=== PATIENT | male | born 1970 | race Caucasian/White ===

== ENCOUNTER 2020-05-07 11:04 | Emergency (ER) | payer MEDICAID ==
[~2020-05-07] VITALS: Ht 175.3 cm; Wt 83.9 kg
[2020-05-07] MEDS ORDERED: SULF1TAB48 PO (11:15)
[2020-05-07] MEDS ORDERED: CEPH-570 PO (11:15)
--- NOTE | 2020-05-07 11:19 | NUR ---
Dr. Patino at bedside assessing patient.
[2020-05-07] MEDS ORDERED: HYDROCODONE/APAP 5-325MG TABLET ONE (11:30)
[2020-05-07] MEDS ORDERED: HYDROCODONE/APAP 5-325MG TABLET PO ONE (11:30)
[2020-05-07 11:58] LABS: BASOPHILS # (AUTO) 0.1 K/uL (0.0-8.0); EOSINOPHILS # (AUTO) 0.4 K/uL (0.0-0.7); EOSINOPHILS % (AUTO) 2.4 % (0.0-7.0); HEMATOCRIT 45.5 % (36.7-47.1); HEMOGLOBIN 15.2 g/dL (12.5-16.3); LYMPHOCYTES # (AUTO) 1.8 K/uL (20.0-40.0); LYMPHOCYTES % (AUTO) 11.6 % (20.5-51.5); MEAN CORPUSCULAR HEMOGLOBIN 29.2 uug (23.8-33.4); MEAN CORPUSCULAR HGB CONC 34 g/dL (32.5-36.3); MEAN CORPUSCULAR VOLUME 87.2 fL (73.0-96.2); MONOCYTES # (AUTO) 1.3 K/uL (2.0-10.0); MONOCYTES % (AUTO) 8.4 % (0.0-11.0); NEUTROPHILS # (AUTO) 11.7 K/uL (1.8-8.9); NEUTROPHILS % (AUTO) 76.6 % (38.5-71.5); PLATELET COUNT (AUTO) 289 K/uL (152-348); RED BLOOD CELL COUNT(AUTO) 5.22 MIL/uL (4.06-5.63); WHITE BLOOD COUNT (AUTO) 15.2 K/uL (3.6-10.2)
[2020-05-07 12:13] LABS: CREATININE 1.1 mg/dL (0.6-1.3); POTASSIUM 3.2 mmol/L (3.5-5.1)
--- NOTE | 2020-05-07 12:22 | NUR ---
Critical lab of Lactic acid of 2.1 reported by Jany.
--- NOTE | 2020-05-07 12:25 | NUR ---
Critical lab reported to Dr. Remy.
[2020-05-07] MEDS ORDERED: IV NORMAL SALINE 1000 ML BAG IV ONE ×2 (12:30→13:30)
[2020-05-07] MEDS ORDERED: PIPERACILLIN SODIUM/TAZOBACTAM 3.375 G in IV DEXTROSE 5% 50 ML IV ONE (12:30)
[2020-05-07] MEDS ORDERED: PIPERACILLIN/TAZOBACTAM/D5W 50 ML IV ONE (12:30)
--- NOTE | 2020-05-07 12:57 | NUR ---
Spoke to Sarah from [place], arranging to transfer patient to [facility].
--- NOTE | 2020-05-07 13:15 | NUR ---
Specimen collected for COVID-19 antigen and sent to lab.
[2020-05-07] MEDS ORDERED: POTASSIUM CHLORIDE 20 MEQ TAB.PRT.SR PO ONE ×2 (13:30→19:00)
--- NOTE | 2020-05-07 13:30 | NUR ---
Pt resting with NAD noted, pending transfer.
[2020-05-07] MEDS ORDERED: POTASSIUM CHLORIDE 20 MEQ TAB.PRT.SR ONE (13:38)
[2020-05-07 14:10] LABS: BILIRUBIN,DIRECT 0.1 mg/dL (0.0-0.2); BILIRUBIN,TOTAL 0.5 mg/dL (0.2-1.0)
--- NOTE | 2020-05-07 15:03 | NUR ---
Jany from lab called and notified COVID test is negative.
--- NOTE | 2020-05-07 17:00 | NUR ---
Spoke to Sarah from [place] faxed over COVID and CT scan.
--- NOTE | 2020-05-07 19:43 | NUR ---
RECEIVED PT RESTING QUITELY. WAITING FOR [facility] TO GIVE US THE BED.
--- NOTE | 2020-05-07 20:50 | NUR ---
JESENIA CALLED THAT [id number].
[2020-05-07] MEDS ORDERED: HYDROMORPHONE 1 MG/1 ML DISP.SYRIN IV ONE (21:00)
[2020-05-07] MEDS ORDERED: LORAZEPAM 2 MG/1 ML VIAL IV ONE (21:00)
[2020-05-07] MEDS ORDERED: HYDROMORPHONE 1 MG/1 ML DISP.SYRIN ONE (21:00)
[2020-05-07] MEDS ORDERED: LORAZEPAM 2 MG/1 ML VIAL ONE (21:05)
--- NOTE | 2020-05-07 21:14 | NUR ---
PT. C/O PAIN ON HIS LEFT EYE DILAUDID 0.5 MG GIVEN IVP.
--- NOTE | 2020-05-07 21:15 | NUR ---
PT REQUESTED MED FOR ANXIETY, DILAUDID 0.5 GIVEN IVP VIA ON RFA HEP LOCK.
--- NOTE | 2020-05-07 21:21 | NUR ---
REPORT GIVEN TO YVETTE SOTO RN .
--- NOTE | 2020-05-07 22:20 | NUR ---
DISCHARGED & TRANSFERED TO [facility]IA [facility].
== END 2020-05-07 22:20 | disposition short-term general hospital (02) ==
LOC: ER 11:04
DX: L03.213 Periorbital cellulitis (principal); E87.6 Hypokalemia; Z20.828 Contact with and (suspected) exposure to other viral communicable diseases
CPT/HCPCS: 36415; 80048; 82247; 82248; 83605 ×2; 85025; 85730; 87040 ×2; 87426; 96365; 96375; 99285; J1170; J2060; J2543; J7030

== ENCOUNTER 2020-05-19 00:10 | Emergency (ER) | payer MEDICAID ==
[~2020-05-19] VITALS: Ht 175.3 cm; Wt 81.6 kg
[~2020-05-19 00:10] MED LIST: CEPH-570 PO; SULF1TAB48 PO
--- NOTE | 2020-05-19 00:22 | NUR ---
Patient discharged to home in stable condition. Written and verbal after care instructions given. Patient verbalizes understanding of instructions. Stressed follow up or return to ER for worsening s/s. Ambulated from ER with stable gait. All belongings with patient.
[2020-05-19 00:24] VITALS: BP 131/70
== END 2020-05-19 00:25 | disposition home or self-care (01) ==
LOC: ER 00:15
DX: Z48.817 Encounter for surgical aftercare following surgery on the skin and subcutaneous tissue (principal); L02.01 Cutaneous abscess of face; R03.0 Elevated blood-pressure reading, without diagnosis of hypertension
CPT/HCPCS: A4663

== ENCOUNTER 2020-06-18 05:36 | Emergency (ER) | payer MEDICAID ==
[~2020-06-18] VITALS: Ht 175.3 cm; Wt 81.6 kg
[2020-06-18] MEDS ORDERED: VANCOMYCIN IV 200 ML ONE (05:59)
[2020-06-18] MEDS ORDERED: CEFTRIAXONE 1 G VIAL ONE (05:59)
[2020-06-18] MEDS ORDERED: VANCOMYCIN IV 1,000 MG in IV DEXTROSE 5% 250 ML IV ONE (06:00)
[2020-06-18] MEDS ORDERED: CEFTRIAXONE 1 G in IV DEXTROSE 5% 50 ML IV ONE (06:00)
== END 2020-06-18 07:27 | disposition home or self-care (01) ==
LOC: ER 05:39
DX: L03.211 Cellulitis of face (principal); L71.9 Rosacea, unspecified; R03.0 Elevated blood-pressure reading, without diagnosis of hypertension
CPT/HCPCS: 96365; 96375; 99284; J0696; J3370; A4663

== ENCOUNTER 2020-07-12 18:38 | Emergency (ER) | payer MEDICAID ==
[~2020-07-12] VITALS: Ht 175.3 cm; Wt 81.6 kg
--- NOTE | 2020-07-12 19:34 | NUR ---
Patient discharged to home in stable condition. Written and verbal after care instructions given. Patient verbalizes understanding of instructions. Stressed follow up or return to ER for worsening s/s.
== END 2020-07-12 19:36 | disposition home or self-care (01) ==
LOC: ER 18:38
DX: Z76.0 Encounter for issue of repeat prescription (principal); R03.0 Elevated blood-pressure reading, without diagnosis of hypertension; L03.211 Cellulitis of face
CPT/HCPCS: A4663

== ENCOUNTER 2020-08-05 08:30 | Emergency (ER) | payer MEDICAID ==
[~2020-08-05] VITALS: Ht 175.3 cm; Wt 81.6 kg
--- NOTE | 2020-08-05 09:11 | NUR ---
Patient discharged to home in stable condition with brisk steady gait. Written and verbal after care instructions given to patient. Patient verbalizes understanding and compliance of instructions. Stressed follow up with his primary doctor / referral-Dr Stallings or return to ER for worsening s/s.
[2020-08-06] MEDS ORDERED: CLIN300C3 PO (04:12)
[2020-08-10] MEDS ORDERED: CLIN300C12 PO (15:10)
== END 2020-08-05 09:11 | disposition home or self-care (01) ==
LOC: ER 08:30
DX: L03.211 Cellulitis of face (principal); L71.9 Rosacea, unspecified
CPT/HCPCS: A4663

== ENCOUNTER 2020-08-06 03:53 | Inpatient (IN) | payer MEDICAID ==
[~2020-08-06] VITALS: Ht 205.7 cm; Wt 81.6 kg
[2020-08-06] MEDS ORDERED: CLIN300C3 PO (04:12)
[2020-08-06] MEDS ORDERED: PIPERACILLIN SODIUM/TAZOBACTAM 3.375 G in IV DEXTROSE 5% 50 ML IV ONE (04:45)
[2020-08-06] MEDS ORDERED: VANCOMYCIN 1G/D5W 200 ML PIGGYBACK IV ONE (04:45)
--- NOTE | 2020-08-06 05:23 | NUR ---
SPOKE TO KARIN FROM [facility] GAVE HER CLINICALS AND SHE IS TO CALL ME BACK IN 1 HR.
--- NOTE | 2020-08-06 05:27 | NUR ---
LABS DRAWN/SENT/COVID SWAB SENT.
[2020-08-06 05:33] LABS: BASOPHILS # (AUTO) 0.1 K/uL (0.0-8.0); BASOPHILS % (AUTO) 0.6 % (0.0-2.0); EOSINOPHILS # (AUTO) 0.1 K/uL (0.0-0.7); EOSINOPHILS % (AUTO) 0.8 % (0.0-7.0); HEMATOCRIT 41.3 % (36.7-47.1); HEMOGLOBIN 14.2 g/dL (12.5-16.3); LYMPHOCYTES # (AUTO) 2.2 K/uL (20.0-40.0); LYMPHOCYTES % (AUTO) 12.2 % (20.5-51.5); MEAN CORPUSCULAR HEMOGLOBIN 29.7 uug (23.8-33.4); MEAN CORPUSCULAR HGB CONC 34 g/dL (32.5-36.3); MEAN CORPUSCULAR VOLUME 86.5 fL (73.0-96.2); MONOCYTES % (AUTO) 11.5 % (0.0-11.0); NEUTROPHILS # (AUTO) 13.3 K/uL (1.8-8.9); NEUTROPHILS % (AUTO) 74.9 % (38.5-71.5); PLATELET COUNT (AUTO) 304 K/uL (152-348); RED BLOOD CELL COUNT(AUTO) 4.77 MIL/uL (4.06-5.63); WHITE BLOOD COUNT (AUTO) 17.8 K/uL (3.6-10.2)
[2020-08-06] MEDS ORDERED: PIPERACILLIN/TAZOBACTAM/D5W 50 ML IV ONE ×3 (05:35→20:00)
--- NOTE | 2020-08-06 05:35 | NUR ---
PHARMACY NOTE; ZOSYN 3.375 GM IVP STARTED AT 0530 TO RT FOREARM
[2020-08-06] MEDS ORDERED: VANCOMYCIN IV 200 ML ONE (05:44)
[2020-08-06 05:47] LABS: CREATININE 1.3 mg/dL (0.6-1.3); POTASSIUM 3.6 mmol/L (3.5-5.1)
[2020-08-06] MEDS ORDERED: IOHEXOL 300MG/ML 100 ML INFUS..BTL ONE (06:35)
[2020-08-06] MEDS ORDERED: IV NORMAL SALINE 250 ML IV ONE (06:35)
[2020-08-06] MEDS ORDERED: SWABABLE VALVE TRANSFER SET EA MC ONE (06:35)
--- NOTE | 2020-08-06 07:50 | NUR ---
Patient is resting in room 3, in n distress. awakens easy Addendum: 08/06/20 at 0835 by RUBY corection from prior note: "IN NO DISTRESS"
[2020-08-06] MEDS ORDERED: MAGNESIUM HYDROXIDE 30 ML LIQUID UDC PO PRN (11:30)
[2020-08-06] MEDS ORDERED: Z GUARD REMEDY PASTE 57 GM TUBE TOP PRN (11:30)
[2020-08-06] MEDS ORDERED: ONDANSETRON 4 MG/2 ML VIAL IV PRN (11:30)
[2020-08-06] MEDS ORDERED: ACETAMINOPHEN 325 MG TABLET PO PRN (11:30)
[2020-08-06] MEDS ORDERED: IV NS 1000 ML 1,000 ML IV PRN (11:30)
[2020-08-06] MEDS ORDERED: IBUPROFEN 600 MG TABLET PO ONE (11:45)
[2020-08-06] MEDS: PIPERACILLIN SODIUM/TAZOBACTAM 3.375 G in IV DEXTROSE 5% 50 ML IV SCH ×3 (11:46→20:01)
[2020-08-06] MEDS ORDERED: IBUPROFEN 600 MG TABLET ONE (11:53)
--- NOTE | 2020-08-06 12:05 | NUR ---
PATIENT IS SITTING UP EATING LUNCH. . STATES FACE HAS PAIN. REQUESTS ADVIL. DR BALLARD NOTIFIED. ADVIL GIVEN ORDERED. PATIENT TO BE ADMITTED TO HOSPITAL. NO MED/SURG BED/STAFF AVAILABLE. PATIENT TO REMAIN IN ER
--- NOTE | 2020-08-06 14:50 | NUR ---
PATIENT IS RESTING IN HIS ROOM WITH NO NEW COMPLAINTS
--- NOTE | 2020-08-06 16:52 | NUR ---
STILL WAITING FOR BED TO BE AVAILIABLE ON M/S FLOOR. PATIENT IS AWAKE AND ALERT IN NO DISTRESS. HE HAS EATEN LUNCH AND DRANK FLUIDS.
--- NOTE | 2020-08-06 18:49 | NUR ---
PATIENT AMBULATED TO BR IN STEADY GAIT. AWAITING BED AVAILABILITY
--- NOTE | 2020-08-06 19:15 | NUR ---
HAND OFF REPORT GIVEN TO PACO IPPER
[2020-08-06] MEDS ORDERED: VANCOMYCIN IV 1,250 MG in IV DEXTROSE 5% 250 ML IV ONE (20:00)
[2020-08-06] MEDS ORDERED: VANCOMYCIN 1000 MG VIAL ONE (20:09)
[2020-08-06] MEDS ORDERED: VANCOMYCIN HCL 500 MG VIAL ONE (20:09)
[2020-08-07] MEDS ORDERED: PIPERACILLIN/TAZOBACTAM/D5W 50 ML IV ONE ×4 (00:06→17:41)
[2020-08-07] MEDS: PIPERACILLIN SODIUM/TAZOBACTAM 3.375 G in IV DEXTROSE 5% 50 ML IV SCH ×4 (00:10→17:38)
[2020-08-07] MEDS ORDERED: HYDROCODONE/APAP 5-325MG TABLET ONE ×2 (02:49→20:13)
[2020-08-07] MEDS: HYDROCODONE/APAP 5-325MG TABLET PO PRN ×2 (02:49→20:09)
--- NOTE | 2020-08-07 03:55 | NUR ---
Patient is resting comfortably in bed with eyes closed
--- NOTE | 2020-08-07 07:02 | NUR ---
PHARMACY NOTE: ZOSYN 3.375 GM IVPB COMPLETED AT 0700 TO RT FOREARM.
--- NOTE | 2020-08-07 07:10 | NUR ---
Patient ate breakfast with good appetite, NAD, calm , pending available inpatient medical surgical bed & [email or web address] time.
[2020-08-07 07:26] LABS: BASOPHILS # (AUTO) 0.1 K/uL (0.0-8.0); BASOPHILS % (AUTO) 0.9 % (0.0-2.0); EOSINOPHILS # (AUTO) 0.4 K/uL (0.0-0.7); EOSINOPHILS % (AUTO) 2.5 % (0.0-7.0); HEMATOCRIT 43.9 % (36.7-47.1); HEMOGLOBIN 15.4 g/dL (12.5-16.3); LYMPHOCYTES # (AUTO) 1.8 K/uL (20.0-40.0); LYMPHOCYTES % (AUTO) 12.5 % (20.5-51.5); MEAN CORPUSCULAR HEMOGLOBIN 30.3 uug (23.8-33.4); MEAN CORPUSCULAR HGB CONC 35 g/dL (32.5-36.3); MEAN CORPUSCULAR VOLUME 86.6 fL (73.0-96.2); MONOCYTES # (AUTO) 1.4 K/uL (2.0-10.0); MONOCYTES % (AUTO) 9.6 % (0.0-11.0); NEUTROPHILS # (AUTO) 10.9 K/uL (1.8-8.9); NEUTROPHILS % (AUTO) 74.5 % (38.5-71.5); PLATELET COUNT (AUTO) 307 K/uL (152-348); RED BLOOD CELL COUNT(AUTO) 5.07 MIL/uL (4.06-5.63); WHITE BLOOD COUNT (AUTO) 14.6 K/uL (3.6-10.2)
[2020-08-07 07:44] LABS: CREATININE 1.1 mg/dL (0.6-1.3); MAGNESIUM 2.2 mg/dL (1.8-2.4); PHOSPHOROUS 3.6 mg/dL (2.5-4.9); POTASSIUM 3.6 mmol/L (3.5-5.1)
[2020-08-07] MEDS: PANTOPRAZOLE SODIUM 40 MG TABLET.DR PO SCH (07:45)
[2020-08-07] MEDS ORDERED: PANTOPRAZOLE SODIUM 40 MG TABLET.DR PO ONE (07:50)
[2020-08-07 08:46] LABS: THYROID STIMULATING HORMONE 0.337 mIU/mL (0.358-3.740)
[2020-08-07] MEDS: VANCOMYCIN IV 1,000 MG in IV DEXTROSE 5% 250 ML IV SCH ×2 (09:12→20:08)
[2020-08-07] MEDS ORDERED: VANCOMYCIN IV 200 ML ONE ×2 (09:16→20:11)
--- NOTE | 2020-08-07 11:56 | NUR ---
Patient was removed from ER bed 3 to ER bed 5A. No acute change seen. Patient is resting comfortably on gurney with eyes closed. Calm & cooperative when awake, respiration:easy.
--- NOTE | 2020-08-07 18:01 | NUR ---
Patient is still waiting for an inpatient med-surg bed & available nurse. Patient is sleeping, denies pains when awake. Dinner [email or web address].
--- NOTE | 2020-08-07 19:13 | NUR ---
Hands off report given to DHEERAJ Silveira.
--- NOTE | 2020-08-07 22:46 | NUR ---
Patient transfered upstairs to Room 315 -- DHEERAJ Isidro given report. Trasferred via [facility]. Pertinent information given. Stable condition.
[2020-08-07 23:08] VITALS: BP 134/87
[2020-08-08] MEDS ORDERED: PIPERACILLIN/TAZOBACTAM/D5W 100 ML IV ONE (02:51)
[2020-08-08 04:20] VITALS: BP 122/76
--- NOTE | 2020-08-08 05:00 | NUR ---
Received [place] from [place] via [place] around 2255 with 0.9 NS infusing well on his right arm, alert and oriented, able to make needs known, cooperative with care. Admission assessment done, VS within normal limits. Patient has redness and swelling on his right cheek, diagnosed with cellulitis. Patient on IV antibiotics, no reactions noted during medication administration. Patient stable the whole shift.
[2020-08-08] MEDS: PIPERACILLIN SODIUM/TAZOBACTAM 3.375 G in IV DEXTROSE 5% 50 ML IV SCH ×4 (06:49→13:28)
[2020-08-08] MEDS: PANTOPRAZOLE SODIUM 40 MG TABLET.DR PO SCH (07:02)
--- NOTE | 2020-08-08 08:00 | NUR ---
Received PT in bed, asleep with safety measure on. No acute distress or SOB noted. Vitals WNL. No complain of pain stated by PT. Will continue to monitor.
[2020-08-08 08:25] LABS: CREATININE 1.3 mg/dL (0.6-1.3); PHOSPHOROUS 3.5 mg/dL (2.5-4.9); POTASSIUM 3.4 mmol/L (3.5-5.1)
[2020-08-08 09:27] LABS: BASOPHILS # (AUTO) 0.1 K/uL (0.0-8.0); BASOPHILS % (AUTO) 0.9 % (0.0-2.0); EOSINOPHILS # (AUTO) 0.6 K/uL (0.0-0.7); EOSINOPHILS % (AUTO) 4.7 % (0.0-7.0); HEMATOCRIT 44.1 % (36.7-47.1); HEMOGLOBIN 15.1 g/dL (12.5-16.3); LYMPHOCYTES # (AUTO) 1.8 K/uL (20.0-40.0); LYMPHOCYTES % (AUTO) 14.9 % (20.5-51.5); MEAN CORPUSCULAR HEMOGLOBIN 29.6 uug (23.8-33.4); MEAN CORPUSCULAR HGB CONC 34 g/dL (32.5-36.3); MEAN CORPUSCULAR VOLUME 86.8 fL (73.0-96.2); MONOCYTES # (AUTO) 1.4 K/uL (2.0-10.0); MONOCYTES % (AUTO) 11.3 % (0.0-11.0); NEUTROPHILS # (AUTO) 8.2 K/uL (1.8-8.9); NEUTROPHILS % (AUTO) 68.2 % (38.5-71.5); PLATELET COUNT (AUTO) 338 K/uL (152-348); RED BLOOD CELL COUNT(AUTO) 5.08 MIL/uL (4.06-5.63); WHITE BLOOD COUNT (AUTO) 12.1 K/uL (3.6-10.2)
[2020-08-08 11:06] VITALS: BP 126/86
[2020-08-08] MEDS: VANCOMYCIN IV 1,000 MG in IV DEXTROSE 5% 250 ML IV SCH (12:20)
[2020-08-08 15:38] VITALS: BP 138/88
--- NOTE | 2020-08-08 17:30 | NUR ---
PT decided to leave on AMA. Refused to sign papers. IV removed. No swelling or bleeding noted. PT walked out of unit.
[2020-08-08] MEDS ORDERED: CEFEPIME HCL 1 G in IV DEXTROSE 5% 50 ML IV SCH (22:00)
[2020-08-10] MEDS ORDERED: CLIN300C12 PO (15:10)
== END 2020-08-08 17:30 | disposition left against medical advice (07) | DRG 383 ==
LOC: ER 04:01 → TRANSITION 18:35 → MEDSURG3 08-07 21:59
PROVIDERS: ADMIT Registered Nurse; ATTEND Registered Nurse
DX: L03.211 Cellulitis of face (principal); D72.829 Elevated white blood cell count, unspecified; F10.10 Alcohol abuse, uncomplicated; F12.90 Cannabis use, unspecified, uncomplicated; F15.10 Other stimulant abuse, uncomplicated; F17.210 Nicotine dependence, cigarettes, uncomplicated; E05.90 Thyrotoxicosis, unspecified without thyrotoxic crisis or storm; K05.6 Periodontal disease, unspecified
CPT/HCPCS: 36415; 70488; 83735; 84100; 84443; 85025; 85651; 87040; 87070; 87077; G0378; J2543; J3370; J7030; J7050; J7060; Q9967

== ENCOUNTER 2020-08-09 02:06 | Inpatient (IN) | payer MEDICAID ==
[~2020-08-09] VITALS: Ht 175.3 cm; Wt 81.6 kg
[~2020-08-09 02:06] MED LIST changes: -CEPH-570 PO; +CLIN300C3 PO; -SULF1TAB48 PO
[2020-08-09] MEDS ORDERED: CEFEPIME HCL 2 G in IV DEXTROSE 5% 100 ML IV ONE (03:15)
[2020-08-09] MEDS ORDERED: VANCOMYCIN IV 1,500 MG in IV DEXTROSE 5% 500 ML IV STA (03:15)
[2020-08-09 03:42] LABS: CREATININE 1.5 mg/dL (0.6-1.3); POTASSIUM 3.3 mmol/L (3.5-5.1)
[2020-08-09 03:53] LABS: BILIRUBIN,TOTAL 0.4 mg/dL (0.2-1.0); TOTAL PROTEIN, SERUM 7.5 g/dL (6.4-8.2)
[2020-08-09 03:56] LABS: BASOPHILS # (AUTO) 0.1 K/uL (0.0-8.0); BASOPHILS % (AUTO) 0.7 % (0.0-2.0); EOSINOPHILS # (AUTO) 0.1 K/uL (0.0-0.7); EOSINOPHILS % (AUTO) 1.1 % (0.0-7.0); HEMATOCRIT 41.8 % (36.7-47.1); HEMOGLOBIN 14.5 g/dL (12.5-16.3); LYMPHOCYTES # (AUTO) 1.7 K/uL (20.0-40.0); LYMPHOCYTES % (AUTO) 14.2 % (20.5-51.5); MEAN CORPUSCULAR HEMOGLOBIN 29.7 uug (23.8-33.4); MEAN CORPUSCULAR HGB CONC 35 g/dL (32.5-36.3); MEAN CORPUSCULAR VOLUME 85.7 fL (73.0-96.2); MONOCYTES # (AUTO) 1.2 K/uL (2.0-10.0); MONOCYTES % (AUTO) 10.1 % (0.0-11.0); NEUTROPHILS # (AUTO) 8.8 K/uL (1.8-8.9); NEUTROPHILS % (AUTO) 73.9 % (38.5-71.5); PLATELET COUNT (AUTO) 337 K/uL (152-348); RED BLOOD CELL COUNT(AUTO) 4.88 MIL/uL (4.06-5.63); WHITE BLOOD COUNT (AUTO) 11.9 K/uL (3.6-10.2)
[2020-08-09] MEDS ORDERED: VANCOMYCIN 1000 MG VIAL ONE (04:35)
[2020-08-09] MEDS ORDERED: CEFEPIME HCL 1 G VIAL ONE (04:35)
[2020-08-09] MEDS ORDERED: VANCOMYCIN HCL 500 MG VIAL ONE (04:36)
--- NOTE | 2020-08-09 05:03 | NUR ---
ALL LABS AND BLOOD CX SENT TO LABB REBA ROOT SWAB SENT APPROX 5 MIN AGO, PT RECEIVING VANCO IVPB AT THIS TIME. PT RESTING EYES CLOSED.
--- NOTE | 2020-08-09 05:39 | NUR ---
spoke to osmel from [facility] whom stated that the pt was authorized to be admitted anf=d to fax her all the summury report and facesheet, which I did.
--- NOTE | 2020-08-09 06:09 | NUR ---
Note rocio in ED - 08/09/20 at 0611 by LUIGI pharmacy note: vanco 1.5gm infusion completed at 608 to rt forearm iv, no adverse reactions noted.
--- NOTE | 2020-08-09 06:09 | NUR ---
pharmacy note; maxepine 2gm ivp ended at 0609 to left forearm
--- NOTE | 2020-08-09 06:54 | NUR ---
PT SLEEPING, NO DISTRESS NOTED,SBAR REPORT TO AM SHIFT, VANCO INFUSING.
[2020-08-09] MEDS ORDERED: IV NS 1000 ML 1,000 ML IV PRN (07:45)
[2020-08-09] MEDS ORDERED: MAGNESIUM HYDROXIDE 30 ML LIQUID UDC PO PRN (07:45)
[2020-08-09] MEDS ORDERED: ONDANSETRON 4 MG/2 ML VIAL IV PRN (07:45)
[2020-08-09] MEDS ORDERED: ACETAMINOPHEN 325 MG TABLET PO PRN (07:45)
[2020-08-09] MEDS ORDERED: Z GUARD REMEDY PASTE 57 GM TUBE TOP PRN (07:45)
[2020-08-09] MEDS ORDERED: HYDROCODONE/APAP 5-325MG TABLET PO PRN (07:45)
--- NOTE | 2020-08-09 08:28 | NUR ---
JAMIE SALDAÑA PROVIDED FOR PT.
[2020-08-09] MEDS ORDERED: HEPARIN SODIUM,PORCINE 5,000 UNITS/ML VIAL ONE (11:29)
[2020-08-09] MEDS: HEPARIN SODIUM,PORCINE 5,000 UNITS/ML VIAL SQ SCH ×2 (11:29→21:00)
--- NOTE | 2020-08-09 12:46 | NUR ---
TRNASFERED PT TO FLOOR IN STABLE CONDITION. PT REMAINED CALM/COMFORTABLE THE WHOLE ER STAY.
[2020-08-09 12:51] VITALS: BP 132/78
--- NOTE | 2020-08-09 14:00 | NUR ---
Received this 50y/o male from ER with diagnosis of right face cellulitis. Patient is alert, oriented x 4, not in any form of distress on room air. He denies any pain or discomfort. Assisted with his needs. Call light and frequently used items placed within patient's reach. IV peripheral line G20 on the left forearm in place and patent. Will continue to monitor.
[2020-08-09] MEDS: CEFEPIME HCL 1 G in IV DEXTROSE 5% 50 ML IV SCH ×2 (15:43→22:07)
[2020-08-09 17:39] VITALS: BP 148/91
[2020-08-09] MEDS: VANCOMYCIN IV 750 MG in IV DEXTROSE 5% 250 ML IV SCH (17:39)
[2020-08-09] MEDS ORDERED: VANCOMYCIN IV 1,000 MG in IV DEXTROSE 5% 250 ML IV SCH (18:00)
[2020-08-09 20:35] VITALS: BP 136/84
[2020-08-10] MEDS: CEFEPIME HCL 1 G in IV DEXTROSE 5% 50 ML IV SCH (05:48)
[2020-08-10] MEDS: VANCOMYCIN IV 750 MG in IV DEXTROSE 5% 250 ML IV SCH (05:54)
[2020-08-10 07:51] LABS: BASOPHILS # (AUTO) 0.1 K/uL (0.0-8.0); BASOPHILS % (AUTO) 1.4 % (0.0-2.0); EOSINOPHILS # (AUTO) 0.5 K/uL (0.0-0.7); EOSINOPHILS % (AUTO) 7.3 % (0.0-7.0); HEMATOCRIT 40.2 % (36.7-47.1); HEMOGLOBIN 14.1 g/dL (12.5-16.3); LYMPHOCYTES # (AUTO) 1.6 K/uL (20.0-40.0); LYMPHOCYTES % (AUTO) 25.9 % (20.5-51.5); MEAN CORPUSCULAR HEMOGLOBIN 29.9 uug (23.8-33.4); MEAN CORPUSCULAR HGB CONC 35 g/dL (32.5-36.3); MEAN CORPUSCULAR VOLUME 85.5 fL (73.0-96.2); MONOCYTES # (AUTO) 0.8 K/uL (2.0-10.0); NEUTROPHILS # (AUTO) 3.4 K/uL (1.8-8.9); NEUTROPHILS % (AUTO) 53.4 % (38.5-71.5); PLATELET COUNT (AUTO) 315 K/uL (152-348); WHITE BLOOD COUNT (AUTO) 6.4 K/uL (3.6-10.2)
[2020-08-10 07:54] LABS: BILIRUBIN,TOTAL 0.6 mg/dL (0.2-1.0); CREATININE 1.4 mg/dL (0.6-1.3); PHOSPHOROUS 3.8 mg/dL (2.5-4.9); POTASSIUM 3.5 mmol/L (3.5-5.1)
[2020-08-10] MEDS: HEPARIN SODIUM,PORCINE 5,000 UNITS/ML VIAL SQ SCH (10:46)
[2020-08-10 12:06] VITALS: BP 141/86
[2020-08-10 14:58] LABS: THYROID STIMULATING HORMONE 0.813 mIU/mL (0.358-3.740)
[2020-08-10] MEDS ORDERED: CLIN300C12 PO (15:10)
[2020-08-10] MEDS ORDERED: AMPI500C11 PO (15:26)
--- NOTE | 2020-08-10 15:45 | NUR ---
With discharge order to home . Saline lock removed. Prescription and DC instruction given to patient, verbalized understanding. Went home per ambulatory, in fair condition, not in distress, afebrile.
== END 2020-08-10 15:45 | disposition home or self-care (01) | DRG 383 ==
LOC: ER 02:08 → TRANSITION 06:30 → MEDSURG3 12:27
PROVIDERS: ADMIT Internal Medicine; ATTEND Internal Medicine
DX: L03.211 Cellulitis of face (principal); L02.01 Cutaneous abscess of face; E87.6 Hypokalemia; N17.0 Acute kidney failure with tubular necrosis; N13.9 Obstructive and reflux uropathy, unspecified; B95.2 Enterococcus as the cause of diseases classified elsewhere; K05.6 Periodontal disease, unspecified; Z20.828 Contact with and (suspected) exposure to other viral communicable diseases; Z87.891 Personal history of nicotine dependence; L71.9 Rosacea, unspecified; F19.10 Other psychoactive substance abuse, uncomplicated
CPT/HCPCS: 36415; 83735; 84100; 84443; 85025; 87040; A4663; G0378; J0692; J1644; J3370; J7060

== ENCOUNTER 2020-09-22 10:31 | Emergency (ER) | payer MEDICAID ==
[~2020-09-22] VITALS: Ht 175.3 cm; Wt 77.1 kg
[2020-09-22] MEDS ORDERED: SULFAMETH/TRIMETH 800/160 MG TABLET PO ONE (10:45)
[2020-09-22] MEDS ORDERED: CEphaleXIN 500 MG CAPSULE PO ONE (10:45)
[2020-09-22] MEDS ORDERED: diphenhydrAMINE 25 MG CAP PO ONE ×2 (10:45→10:51)
[2020-09-22] MEDS ORDERED: NAPROXEN 500 MG TABLET PO ONE (10:45)
[2020-09-22] MEDS ORDERED: CEPH500C2 PO (10:46)
[2020-09-22] MEDS ORDERED: NAPR-1009 PO (10:46)
[2020-09-22] MEDS ORDERED: SULF1TAB48 PO (10:46)
[2020-09-22] MEDS ORDERED: DIPH25CA83 PO (10:46)
[2020-09-22] MEDS ORDERED: CEphaleXIN 500 MG CAPSULE ONE (10:51)
[2020-09-22] MEDS ORDERED: SULFAMETH/TRIMETH 800/160 MG TABLET ONE (10:51)
[2020-09-22] MEDS ORDERED: NAPROXEN 500 MG TABLET ONE (10:51)
[2020-09-22 10:58] VITALS: BP 157/89
== END 2020-09-22 10:59 | disposition home or self-care (01) ==
LOC: ER 10:32
DX: L03.213 Periorbital cellulitis (principal); L71.9 Rosacea, unspecified
CPT/HCPCS: 99284; Q0163; A4663

== ENCOUNTER 2020-10-16 19:47 | Emergency (ER) | payer MEDICAID ==
[~2020-10-16] VITALS: Ht 175.3 cm; Wt 81.6 kg
[~2020-10-16 19:47] MED LIST changes: +CEPH500C2 PO; -CLIN300C3 PO; +DIPH25CA83 PO; +NAPR-1009 PO; +SULF1TAB48 PO
--- NOTE | 2020-10-16 19:57 | NUR ---
Dr. Coffman at bedside for MSE.
[2020-10-16] MEDS ORDERED: LIDOCAINE 1%-EPI 1:100,000 20 ML VIAL IJ ONE (20:00)
[2020-10-16] MEDS ORDERED: SULF1TAB48 PO (20:09)
[2020-10-16] MEDS ORDERED: CEPH500C2 PO (20:09)
--- NOTE | 2020-10-16 20:21 | NUR ---
Patient discharged to home in stable condition. Written and verbal after care instructions given. Patient verbalizes understanding of instructions. Stressed follow up or return to ER for worsening s/s. Patient out of ER with steady gait, no acute signs of distress, VSS, all belongings taken.
[2020-10-16 20:22] VITALS: BP 152/90
== END 2020-10-16 20:23 | disposition home or self-care (01) ==
LOC: ER 19:48
DX: L02.01 Cutaneous abscess of face (principal); L03.211 Cellulitis of face
CPT/HCPCS: 10060; 99283; J3490; A4663

== ENCOUNTER 2020-11-03 12:49 | Emergency (ER) | payer MEDICAID ==
[~2020-11-03] VITALS: Ht 175.3 cm; Wt 79.4 kg
--- NOTE | 2020-11-03 13:10 | NUR ---
Dr Mane at the bedside for MSE.
[2020-11-03 13:33] LABS: CREATININE 1.4 mg/dL (0.6-1.3); POTASSIUM 3.7 mmol/L (3.5-5.1)
[2020-11-03 13:35] LABS: BASOPHILS # (AUTO) 0.1 K/uL (0.0-8.0); BASOPHILS % (AUTO) 0.8 % (0.0-2.0); EOSINOPHILS # (AUTO) 0.2 K/uL (0.0-0.7); EOSINOPHILS % (AUTO) 1.3 % (0.0-7.0); HEMATOCRIT 42.6 % (36.7-47.1); HEMOGLOBIN 14.5 g/dL (12.5-16.3); LYMPHOCYTES # (AUTO) 2.2 K/uL (20.0-40.0); LYMPHOCYTES % (AUTO) 14.2 % (20.5-51.5); MEAN CORPUSCULAR HEMOGLOBIN 29.2 uug (23.8-33.4); MEAN CORPUSCULAR HGB CONC 34 g/dL (32.5-36.3); MEAN CORPUSCULAR VOLUME 86.1 fL (73.0-96.2); MONOCYTES # (AUTO) 1.4 K/uL (2.0-10.0); MONOCYTES % (AUTO) 9.3 % (0.0-11.0); NEUTROPHILS # (AUTO) 11.3 K/uL (1.8-8.9); NEUTROPHILS % (AUTO) 74.4 % (38.5-71.5); PLATELET COUNT (AUTO) 426 K/uL (152-348); RED BLOOD CELL COUNT(AUTO) 4.95 MIL/uL (4.06-5.63); WHITE BLOOD COUNT (AUTO) 15.2 K/uL (3.6-10.2)
[2020-11-03] MEDS ORDERED: CLINDAMYCIN HCL 150 MG CAPSULE PO ONE (14:15)
[2020-11-03] MEDS ORDERED: CLINDAMYCIN HCL 150 MG CAPSULE ONE (14:26)
--- NOTE | 2020-11-03 14:30 | NUR ---
Patient does not wish to proceed with medical care recommended by Dr. Rucker). Patient given information related to possible complications, up to and including , which could occur as a result of leaving the hospital at this time. Patient verbalizes understanding of risks involved due to leaving against medical advice. Patient has signed AMA form.
== END 2020-11-03 14:30 | disposition left against medical advice (07) ==
LOC: ER 12:49
DX: L03.211 Cellulitis of face (principal); D72.829 Elevated white blood cell count, unspecified; R79.82 Elevated C-reactive protein (CRP)
CPT/HCPCS: 36415; 85025; 85651; 86140; A4663

== ENCOUNTER 2020-11-03 16:41 | Emergency (ER) | payer MEDICAID ==
[~2020-11-03] VITALS: Ht 175.3 cm; Wt 79.4 kg
[2020-11-03] MEDS: OXYCODONE/APAP 5-325 MG TABLET PO ONE (22:17)
[2020-11-03] MEDS ORDERED: OXYCODONE/APAP 5-325 MG TABLET ONE (22:21)
[2020-11-03] MEDS ORDERED: LORAZEPAM 1 MG TABLET ONE (23:36)
[2020-11-03] MEDS: LORAZEPAM 0.5 MG TABLET PO ONE (23:40)
== END 2020-11-04 00:07 | disposition short-term general hospital (02) ==
LOC: ER 16:42
DX: L03.211 Cellulitis of face (principal); F15.10 Other stimulant abuse, uncomplicated; Z20.822 Contact with and (suspected) exposure to COVID-19
CPT/HCPCS: A4663

== ENCOUNTER 2021-04-02 06:14 | Emergency (ER) | payer MEDICAID ==
[~2021-04-02] VITALS: Ht 172.7 cm; Wt 81.6 kg
--- NOTE | 2021-04-02 06:41 | NUR ---
PT AMBULATED TO ER WITH STEADY GAIT, C/O SWOLLEN/PAINFUL PENIS THAT STARTED 3 DAYS AGO. A/O X3, AFEBRILE, NO SOB OR LABORED BREATHING.
--- NOTE | 2021-04-02 06:42 | NUR ---
DR. MARQUEZ AT BEDSIDE, MSE IN PROGRESS. CHAPERONED BY DHEERAJ GRISSOM.
[2021-04-02] MEDS ORDERED: CEFTRIAXONE 500 MG VIAL IM ONE (07:00)
[2021-04-02] MEDS ORDERED: AZITHROMYCIN 250 MG TABLET PO ONE (07:00)
[2021-04-02] MEDS ORDERED: CEFTRIAXONE 1 G VIAL ONE (07:03)
[2021-04-02] MEDS ORDERED: AZITHROMYCIN 250 MG TABLET ONE (07:03)
[2021-04-02] MEDS ORDERED: SULF1TAB48 PO (07:03)
--- NOTE | 2021-04-02 07:33 | NUR ---
Gave pt RX and d/c instructions, pt verbalized understanding.
== END 2021-04-02 07:44 | disposition home or self-care (01) ==
LOC: ER 06:16
DX: N48.22 Cellulitis of corpus cavernosum and penis (principal); L71.9 Rosacea, unspecified
CPT/HCPCS: 96372; 99283; J0696; J3490; A4663; Q0144

== ENCOUNTER 2021-04-19 19:27 | Emergency (ER) | payer MEDICAID ==
[~2021-04-19] VITALS: Ht 172.7 cm; Wt 81.6 kg
[~2021-04-19 19:27] MED LIST changes: -CEPH500C2 PO; -DIPH25CA83 PO; -NAPR-1009 PO
[2021-04-19] MEDS ORDERED: CLIN300C12 PO (20:02)
[2021-04-19] MEDS ORDERED: MUPI22OI2 TP (20:02)
[2021-04-19] MEDS ORDERED: NYST15CR TP (20:02)
[2021-04-19 20:50] VITALS: BP 118/90
== END 2021-04-19 20:16 | disposition home or self-care (01) ==
LOC: ER 19:28
DX: N48.1 Balanitis (principal); N47.2 Paraphimosis; F15.20 Other stimulant dependence, uncomplicated; F12.20 Cannabis dependence, uncomplicated; F17.290 Nicotine dependence, other tobacco product, uncomplicated
CPT/HCPCS: A4663

== ENCOUNTER 2021-06-29 00:09 | Emergency (ER) | payer MEDICAID ==
[~2021-06-29] VITALS: Ht 175.3 cm; Wt 79.4 kg
[~2021-06-29 00:09] MED LIST changes: +CLIN300C12 PO; +MUPI22OI2 TP; +NYST15CR TP
[2021-06-29] MEDS ORDERED: DIPH25TA25 PO (00:35)
[2021-06-29] MEDS ORDERED: CLIN300C12 PO (00:35)
[2021-06-29] MEDS ORDERED: HYDR-3980 PO (00:35)
[2021-06-29] MEDS ORDERED: PRED20TA PO (00:35)
[2021-06-29] MEDS ORDERED: TDAP DIPH,PERTUSS,TET VAC/PF 0.5 ML DISP.SYRIN IM ONE ×2 (00:45→01:07)
[2021-06-29] MEDS ORDERED: HYDROMORPHONE 1 MG/1 ML DISP.SYRIN IV ONE (00:45)
[2021-06-29] MEDS ORDERED: methylPREDNISolone SOD SUCC 125 MG/2 ML VIAL IV ONE (00:45)
[2021-06-29] MEDS ORDERED: diphenhydrAMINE 50 MG/1 ML VIAL IV ONE (00:45)
[2021-06-29] MEDS ORDERED: ONDANSETRON 4 MG/2 ML VIAL IV ONE (00:45)
[2021-06-29] MEDS ORDERED: CLINDAMYCIN PHOSPHATE IV 900 MG in IV DEXTROSE 5% 100 ML IV ONE (00:45)
[2021-06-29] MEDS ORDERED: methylPREDNISolone SOD SUCC 125 MG/2 ML VIAL ONE (01:04)
[2021-06-29] MEDS ORDERED: diphenhydrAMINE 50 MG/1 ML VIAL ONE (01:04)
[2021-06-29] MEDS ORDERED: HYDROMORPHONE 1 MG/1 ML DISP.SYRIN ONE (01:04)
[2021-06-29] MEDS ORDERED: ONDANSETRON 4 MG/2 ML VIAL ONE (01:04)
[2021-06-29] MEDS ORDERED: CLINDAMYCIN 900MG/D5W 100ML IVPB **ER PYXIS ONLY IJ ONE (01:07)
--- NOTE | 2021-06-29 01:15 | NUR ---
Verbal consent given for tdap booster
--- NOTE | 2021-06-29 02:40 | NUR ---
IV removed. Catheter intact and site benign. Pressure and 4x4 gauze applied to site. No bleeding noted.
--- NOTE | 2021-06-29 02:45 | NUR ---
Pt discharged from ER, pt refused to sign discharged paperwork, did not want to wake up or leave the ER, security was called and pt was escorted out of the ER.
[2021-06-29 03:00] VITALS: BP 138/79
== END 2021-06-29 03:01 | disposition home or self-care (01) ==
LOC: ER 00:15
DX: S61.432A Puncture wound without foreign body of left hand, initial encounter (principal); W31.89XA Contact with other specified machinery, initial encounter; Y92.89 Other specified places as the place of occurrence of the external cause; F17.210 Nicotine dependence, cigarettes, uncomplicated; F15.10 Other stimulant abuse, uncomplicated; L71.9 Rosacea, unspecified; R21 Rash and other nonspecific skin eruption
CPT/HCPCS: 73130; 90471; 90715; 96374; 96375; 99284; 99406; J1170; J1200; J2405; J2930; J3490; A4663

== ENCOUNTER 2021-07-03 18:45 | Emergency (ER) | payer MEDICAID ==
[~2021-07-03] VITALS: Ht 175.3 cm; Wt 79.4 kg
[~2021-07-03 18:45] MED LIST changes: +DIPH25TA25 PO; +HYDR-3980 PO; +PRED20TA PO
--- NOTE | 2021-07-03 19:15 | NUR ---
Dr. Scott at bedside for MSE.
[2021-07-03] MEDS ORDERED: CLIN300C12 PO (19:18)
[2021-07-03 19:25] VITALS: BP 155/100
== END 2021-07-03 19:25 | disposition home or self-care (01) ==
LOC: ER 18:52
DX: L02.01 Cutaneous abscess of face (principal); I16.0 Hypertensive urgency; F12.20 Cannabis dependence, uncomplicated; F15.20 Other stimulant dependence, uncomplicated; F17.290 Nicotine dependence, other tobacco product, uncomplicated
CPT/HCPCS: A4663

== ENCOUNTER 2021-07-06 09:15 | Emergency (ER) | payer MEDICAID ==
[~2021-07-06] VITALS: Ht 175.3 cm; Wt 79.4 kg
[2021-07-06] MEDS: LIDOCAINE HCL 1% 20 ML VIAL IJ ONE (11:00)
[2021-07-06] MEDS ORDERED: diphenhydrAMINE 50 MG/1 ML VIAL ONE (12:23)
[2021-07-06] MEDS ORDERED: HYDROMORPHONE 1 MG/1 ML DISP.SYRIN ONE (12:23)
[2021-07-06] MEDS: diphenhydrAMINE 50 MG/1 ML VIAL IM ONE (12:27)
[2021-07-06] MEDS: HYDROMORPHONE 1 MG/1 ML DISP.SYRIN IM ONE (12:28)
[2021-07-06] MEDS ORDERED: NEOMY/BACITRA/POLYMYXIN B OINT UD PACKET TP ONE (13:00)
== END 2021-07-06 13:43 | disposition home or self-care (01) ==
LOC: ER 09:15
DX: L02.01 Cutaneous abscess of face (principal); L71.9 Rosacea, unspecified; F15.10 Other stimulant abuse, uncomplicated; F12.20 Cannabis dependence, uncomplicated; R03.0 Elevated blood-pressure reading, without diagnosis of hypertension
CPT/HCPCS: 10060; 96372 ×2; 99284; J1170; J1200; J3490; A4663

== ENCOUNTER 2021-07-07 19:40 | Emergency (ER) | payer MEDICAID ==
[~2021-07-07] VITALS: Ht 175.3 cm; Wt 79.4 kg
--- NOTE | 2021-07-07 20:30 | NUR ---
Patient sitting in waiting room with no distress noted.
--- NOTE | 2021-07-07 21:45 | NUR ---
Bed is available in the ER at this time. Called patient to be placed in room but was not present in the waiting room or outside of ER.
--- NOTE | 2021-07-07 22:00 | NUR ---
Patient left without being seen by ERMD
[2021-07-08] MEDS ORDERED: CEPH500C2 PO (05:35)
[2021-07-08] MEDS ORDERED: SULF1TAB48 PO (05:35)
== END 2021-07-07 23:00 | disposition left against medical advice (07) ==
LOC: ER 19:41
DX: Z53.21 Procedure and treatment not carried out due to patient leaving prior to being seen by health care provider (principal)

== ENCOUNTER 2021-07-08 02:11 | Emergency (ER) | payer MEDICAID ==
[~2021-07-08] VITALS: Ht 175.3 cm; Wt 79.4 kg
--- NOTE | 2021-07-08 02:20 | NUR ---
Patientarrived at the ER with c/o of left hand swelling and pain that started 5 days ago.
--- NOTE | 2021-07-08 02:46 | NUR ---
Dr. Ayon on bedside for MSE.
[2021-07-08] MEDS ORDERED: KETOROLAC TROMETHAMINE 30 MG INJ IVP ONE (03:15)
[2021-07-08] MEDS ORDERED: IV NS 1000 ML 1,000 ML IV ONE (03:15)
[2021-07-08] MEDS ORDERED: CLINDAMYCIN PHOSPHATE IV 900 MG in IV DEXTROSE 5% 100 ML IV ONE (03:15)
[2021-07-08 03:27] LABS: HEMATOCRIT 43.4 % (36.7-47.1); MEAN CORPUSCULAR HEMOGLOBIN 28.8 uug (23.8-33.4); MEAN CORPUSCULAR VOLUME 84.7 fL (73.0-96.2); PLATELET COUNT (AUTO) 300 K/uL (152-348)
[2021-07-08] MEDS ORDERED: KETOROLAC TROMETHAMINE 30 MG INJ ONE (03:28)
[2021-07-08] MEDS ORDERED: CLINDAMYCIN PHOSPHATE 900 MG/6 ML VIAL ONE (03:28)
[2021-07-08 03:30] LABS: CREATININE 1.1 mg/dL (0.6-1.3); POTASSIUM 3.5 mmol/L (3.5-5.1)
[2021-07-08] MEDS ORDERED: LIDOCAINE 1%-EPI 1:100,000 20 ML VIAL IJ ONE (03:30)
[2021-07-08 03:36] LABS: BILIRUBIN,TOTAL 0.4 mg/dL (0.2-1.0); TOTAL PROTEIN, SERUM 7.5 g/dL (6.4-8.2)
--- NOTE | 2021-07-08 05:06 | NUR ---
Telephone call to KAYLEE to follow up on hand xray result.
--- NOTE | 2021-07-08 05:19 | NUR ---
Dr. Ayon on bedside.
[2021-07-08] MEDS ORDERED: SULF1TAB48 PO (05:35)
[2021-07-08] MEDS ORDERED: CEPH500C2 PO (05:35)
--- NOTE | 2021-07-08 05:43 | NUR ---
Patient discharged to home in stable condition. Written and verbal after care instructions given. Patient verbalizes understanding of instructions. Stressed follow up or return to ER for worsening s/s. Patient ambulated fr the ER with steady gait. All belongings with patient.
[2021-07-08 05:44] VITALS: BP 140/95
== END 2021-07-08 05:40 | disposition home or self-care (01) ==
LOC: ER 02:15
DX: L03.114 Cellulitis of left upper limb (principal); S61.432D Puncture wound without foreign body of left hand, subsequent encounter; W31.89XD Contact with other specified machinery, subsequent encounter; Z91.14 Patient's other noncompliance with medication regimen; L02.01 Cutaneous abscess of face; D72.829 Elevated white blood cell count, unspecified; F15.10 Other stimulant abuse, uncomplicated
CPT/HCPCS: 10060; 36415; 73130; 80053; 85025; 96365; 96375; 99284; J1885; J3490; J7060; A4663; J7030

== ENCOUNTER 2021-07-11 08:00 | Emergency (ER) | payer MEDICAID ==
[~2021-07-11] VITALS: Ht 175.3 cm; Wt 79.4 kg
[~2021-07-11 08:00] MED LIST changes: +CEPH500C2 PO
--- NOTE | 2021-07-11 08:50 | NUR ---
Dr Mane is at bedside for MSE
[2021-07-11] MEDS ORDERED: CEPH500C2 PO (09:09)
[2021-07-11] MEDS ORDERED: SULF1TAB48 PO (09:09)
--- NOTE | 2021-07-11 09:14 | NUR ---
Patient discharged to home in stable condition. Written and verbal after care instructions given. Patient verbalizes understanding of instructions. Stressed follow up or return to ER for worsening s/s. Ambulatedf out of ED in steady gait.
[2021-07-11 09:15] VITALS: BP 145/96
== END 2021-07-11 09:15 | disposition home or self-care (01) ==
LOC: ER 08:00
DX: L03.211 Cellulitis of face (principal); L03.114 Cellulitis of left upper limb; Z76.0 Encounter for issue of repeat prescription
CPT/HCPCS: A4663

== ENCOUNTER 2021-10-23 05:52 | Emergency (ER) | payer MEDICAID ==
[~2021-10-23] VITALS: Ht 175.3 cm; Wt 79.4 kg
--- NOTE | 2021-10-23 06:12 | NUR ---
DR. MARQUEZ AT BEDSIDE, MSE IN PROGRESS.
[2021-10-23] MEDS ORDERED: VALACYCLOVIR HCL 500 MG TABLET PO ONE (06:45)
[2021-10-23] MEDS ORDERED: VALACYCLOVIR HCL 500 MG TABLET ONE (06:47)
[2021-10-23] MEDS ORDERED: VALA100026 PO (07:17)
[2021-10-23] MEDS ORDERED: IBUP-1957 PO (07:17)
--- NOTE | 2021-10-23 07:38 | NUR ---
PT WAS D/C'D TO HOME. D/C INSTRUCTIONS GIVEN TO THE PT BY DR MARQUEZ.
[2021-10-23 07:40] VITALS: BP 136/91
== END 2021-10-23 07:41 | disposition home or self-care (01) ==
LOC: ER 05:54
DX: A60.01 Herpesviral infection of penis (principal)
CPT/HCPCS: A4663

== ENCOUNTER 2021-11-22 11:08 | Emergency (ER) | payer MEDICAID ==
[~2021-11-22] VITALS: Ht 175.3 cm; Wt 79.4 kg
[~2021-11-22 11:08] MED LIST changes: +IBUP-1957 PO; +VALA100026 PO
[2021-11-22] MEDS ORDERED: DOXYCYCLINE HYCLATE 100 MG TABLET ONE (11:45)
[2021-11-22] MEDS ORDERED: CEFTRIAXONE 500 MG VIAL IM ONE (11:45)
[2021-11-22] MEDS ORDERED: IBUPROFEN 600 MG TABLET PO ONE (11:45)
[2021-11-22] MEDS ORDERED: CEFTRIAXONE 500 MG VIAL ONE (11:45)
[2021-11-22] MEDS ORDERED: LIDOCAINE HCL 1% 20 ML VIAL ONE (11:45)
[2021-11-22] MEDS ORDERED: DOXYCYCLINE HYCLATE 100 MG TABLET PO ONE (11:45)
[2021-11-22] MEDS ORDERED: IBUPROFEN 600 MG TABLET ONE (11:45)
[2021-11-22] MEDS ORDERED: DOXY-326 PO (11:51)
[2021-11-22] MEDS ORDERED: VALA500T PO (11:51)
--- NOTE | 2021-11-22 12:14 | NUR ---
Patient discharged to home in stable condition with brisk steady gait. Written and verbal after care instructions given. Patient verbalized understanding and compliance of instructions. Stressed follow up with primary doctor and/or [facility] (addresses & tel#s provided) or return to ER for worsening s/s.
== END 2021-11-22 12:14 | disposition home or self-care (01) ==
LOC: ER 11:08
DX: N48.5 Ulcer of penis (principal); Z76.0 Encounter for issue of repeat prescription; Z86.19 Personal history of other infectious and parasitic diseases; L97.829 Non-pressure chronic ulcer of other part of left lower leg with unspecified severity; F17.210 Nicotine dependence, cigarettes, uncomplicated; R03.0 Elevated blood-pressure reading, without diagnosis of hypertension
CPT/HCPCS: 36415; 86592; 96372; 99283; 99406; J0696; J3490; A4663

== ENCOUNTER 2022-02-10 09:53 | Emergency (ER) | payer MEDICAID ==
[~2022-02-10] VITALS: Ht 175.3 cm; Wt 81.6 kg
[~2022-02-10 09:53] MED LIST changes: +DOXY-326 PO; +VALA500T PO
--- NOTE | 2022-02-10 10:21 | NUR ---
EDMD at bedside to eval pt condition.
--- NOTE | 2022-02-10 10:22 | NUR ---
Kael chan in [facility] - 02/10/22 at 1033 by [email or web address] [email or web address], medical screening exam in progress
[2022-02-10] MEDS ORDERED: ACETAMINOPHEN 325 MG TABLET PO ONE (10:30)
[2022-02-10] MEDS ORDERED: METOCLOPRAMIDE HCL 10 MG/2 ML VIAL IV ONE (10:30)
[2022-02-10] MEDS ORDERED: diphenhydrAMINE 50 MG/1 ML VIAL IV ONE (10:30)
[2022-02-10] MEDS ORDERED: diphenhydrAMINE 50 MG/1 ML VIAL ONE (10:30)
[2022-02-10] MEDS ORDERED: IV NORMAL SALINE 1000 ML BAG IV ONE (10:30)
[2022-02-10] MEDS ORDERED: METOCLOPRAMIDE HCL 10 MG/2 ML VIAL ONE (10:31)
[2022-02-10] MEDS ORDERED: SWABABLE VALVE TRANSFER SET EA MC ONE (10:33)
[2022-02-10] MEDS ORDERED: IOHEXOL 350 100 ML INFUS..BTL ONE (10:33)
[2022-02-10] MEDS ORDERED: IV NORMAL SALINE 250 ML IV ONE (10:33)
[2022-02-10 10:49] LABS: HEMATOCRIT 47.1 % (36.7-47.1); MEAN CORPUSCULAR HEMOGLOBIN 28.7 uug (23.8-33.4); MEAN CORPUSCULAR VOLUME 84.9 fL (73.0-96.2); PLATELET COUNT (AUTO) 300 K/uL (152-348)
[2022-02-10 11:08] LABS: CARBON DIOXIDE 28 mmol/L (21-32); CHLORIDE 103 mmol/L (98-107); CREATININE 1.4 mg/dL (0.6-1.3); GLUCOSE 129 mg/dL (74-106); POTASSIUM 3.7 mmol/L (3.5-5.1); UREA NITROGEN, BLOOD 13 mg/dL (7-18)
--- NOTE | 2022-02-10 11:22 | NUR ---
Patient left for CT scan, IV line was flushed and heplock.
--- NOTE | 2022-02-10 12:30 | NUR ---
Pt given dc instructions and confirmed understanding of aftercare. All questions answered. VSS. No s/sx of distress present. Pt signed out and amb out of dept with steady gait.
[2022-02-10 14:12] VITALS: BP 144/94
== END 2022-02-10 12:10 | disposition home or self-care (01) ==
LOC: ER 09:53
DX: R51.9 Headache, unspecified (principal); R20.0 Anesthesia of skin
CPT/HCPCS: 36415; 70496; 70498; 80048; 84484; 85025; 85730; 96374; 96375; 99285; J1200; J2765; J7040; Q9967; A4663